=== PATIENT | male | born 1955 | race African-American/Black ===

== ENCOUNTER → 2018-12-04 06:47 | Outpatient (CLI) | payer MEDICARE, MEDICAID, SELFPAY ==
[2018-10-22 13:03] VITALS: BMI 30.2
--- NOTE | 2018-12-04 06:48 | ECHOCS_ITS ---
Reason For Study: CAD/ASHD Procedure This was a 2D Doppler, Color Flow transthoracic echocardiogram. The study was technically difficult. Contrast injection was performed. Exam performed in department. Left Ventricle Normal LV size. Moderate concentric left ventricular hypertrophy. Left ventricular systolic function is normal. The estimated ejection fraction is 60 %. Stage 1 diastolic dysfunction. No regional wall motion abnormalities noted. Right Ventricle Normal RV size. Normal systolic function. Atria Normal left atrium. Normal right atrium. Mitral Valve Normal mitral valve. Tricuspid Valve Normal tricuspid valve. Aortic Valve Normal aortic valve. Trisinus/trileaflet aortic valve. Pulmonic Valve Normal pulmonic valve. Great Vessels Normal aortic root. The pulmonary artery is normal size. Normal inferior vena cava. Pericardium/Pleural No pericardial effusion. Medication 22 gauge I.V. with prn adaptor inserted into right arm. Diluted definity 3ml given slow IV push to enhance endocardial definition. MMode/2D Measurements & Calculations LVIDd: 3.9 cm IVSd: 1.7 cm Ao root diam: 3.5 cm LVIDs: 2.3 cm LVPWd: 1.4 cm LA dimension: 3.6 cm FS: 42.2 % LAV(MOD-sp4): 56.1 ml LA A4 area: 20.5 cm2 Time Measurements MV dec time: 0.38 sec Doppler Measurements & Calculations MV E max dewayne: 50.2 cm/sec Lat Peak E' Dewayne: 6.8 cm/sec Med Peak E' Dewayne: 4.5 cm/sec MV A max dewayne: 95.8 cm/sec E/E' lat: 7.3 E/E' med: 11.3 MV E/A: 0.52 MV V2 max: 99.2 cm/sec MV P1/2t max dewayne: 70.1 cm/sec Ao V2 max: 92.5 cm/sec MV max P.9 mmHg MV P1/2t: 79.3 msec Ao max P.5 mmHg MV V2 mean: 52.3 cm/sec MV dec slope: 259.1 cm/sec2 MV mean P.3 mmHg MV V2 VTI: 23.7 cm MVA(P1/2t): 2.8 cm2 LV V1 max: 84.8 cm/sec PA V2 max: 84.6 cm/sec LV V1 max P.0 mmHg Interpretation Summary Normal LV size. Moderate concentric left ventricular hypertrophy. Left ventricular systolic function is normal. The estimated ejection fraction is 60 %. Stage 1 diastolic dysfunction. Contrast injection was performed. Ordering Physician: Mack Webster Referring Physician: Mack Webster Performed By: Bijan Baer RCS
--- NOTE | 2018-12-04 12:39 | STRESSREP ---
Stress Test Report Pharmacologic myocardial perfusion stress test. 63-year-old man with history of coronary artery disease. Medications insulin, lisinopril, metoprolol, simvastatin, amlodipine. Stress protocol: Resting EKG demonstrates normal sinus rhythm with a rate of [address] changes are noted premature ventricular complexes are present. Resting blood pressure is 154/74 mmHg. 0.4 mg of regadenoson was infused per usual protocol .Intravenous saline flush injection continuous EKG monitoring was performed. The patient maintained sinus rhythm throughout the recording the maximum heart rate was 92 bpm which was 59% of maximum predicted heart rate and maximum workload was 1 metabolic equivalent. At rest downsloping inferolateral ST changes were noted with no meet the criteria for ischemia. At peak infusion the changes did not appear to be any worse. Myocardial perfusion protocol. 11.7 mCi of technetium 99m sestamibi was injected at rest. 0.4 mg of regadenoson was infused per usual protocol peak infusion 33.7 mCi of technetium 99m sestamibi was injected stress images were obtained stress and rest images were reconstructed and compared in the short axis vertical and horizontal long axes. Gated images were also obtained Diffusion SPECT analysis. Review of the stress imaging demonstrates normal uptake of tracer noted in all areas of the myocardium the resting images similarly demonstrate normal uptake of tracer noted in all areas of myocardium. No gated images were obtained. Conclusion: Normal pharmacologic myocardial perfusion stress test.
== END ==
PROVIDERS: Family Provider Family Medicine; PCP Family Medicine; Referring Provider Nurse Practitioner Family; Visit Provider Nurse Practitioner Family
DX: I25.10 Atherosclerotic heart disease of native coronary artery without angina pectoris (principal); E11.65 Type 2 diabetes mellitus with hyperglycemia; I10 Essential (primary) hypertension
CPT/HCPCS: 78452; 93017; 93306; A9500; Q9957; A4216; C8929; J2785

== ENCOUNTER → 2020-01-19 16:42 | Outpatient (CLI) | payer MEDICARE, MEDICAID, SELFPAY ==
[2020-01-19 15:48] VITALS: BMI 26.1
[2020-01-19 17:57] LABS: Anion Gap 6 (5-15); BUN 30 mg/dL (7-18); Calcium,Total 8.8 mg/dL (8.5-10.1); Chloride 110 mmol/L (98-107); Creatinine, Serum 2.31 mg/dL (0.70-1.30); EST Glomerular Filtration Rate 30 mL/min (>60); Est Glom Filt Rate - Afr Amer 37 mL/min (>60); Glucose 172 mg/dL (74-106); Magnesium 2.5 mg/dL (1.6-2.6); Potassium 4.8 mmol/L (3.5-5.1); Sodium Level 138 mmol/L (136-145)
== END ==
PROVIDERS: PCP Family Medicine; Referring Provider Nurse Practitioner Family; Visit Provider Nurse Practitioner Family
DX: I25.10 Atherosclerotic heart disease of native coronary artery without angina pectoris (principal); I10 Essential (primary) hypertension; E78.5 Hyperlipidemia, unspecified; R55 Syncope and collapse
CPT/HCPCS: 36415; 80048; 83735

== ENCOUNTER → 2020-01-21 12:43 | Outpatient (CLI) | payer MEDICARE, MEDICAID, SELFPAY ==
[2020-01-19 15:48] VITALS: BMI 26.1
== END ==
PROVIDERS: PCP Family Medicine; Referring Provider Nurse Practitioner Family; Visit Provider Nurse Practitioner Family
DX: R55 Syncope and collapse (principal)
CPT/HCPCS: 93225; 93226

== ENCOUNTER 2023-02-26 15:06 | Emergency (ER) | payer MEDICARE, MEDICAID, SELFPAY ==
[2023-02-26 15:08] VITALS: BP 132/72; PULSE 80; RESP 18; TEMP 36.8; O2SAT 100; BMI 25.9
--- NOTE | 2023-02-26 16:11 | RAD_ITS ---
STUDY: X-RAY - THORACIC SPINE REASON FOR EXAM: Male, 67 years old. Injury/Pain TECHNIQUE: AP and lateral view(s) of the thoracic spine were obtained. COMPARISON: None. FINDINGS: Normal kyphosis of the thoracic spine. There is no substantial scoliosis. Normal thoracic vertebrae. There are diffuse arthritic changes are noted.. The soft tissue structures are unremarkable. RAD/Thoracic Spine 3 Views IMPRESSION: Diffuse arthritic changes. No acute fracture or other significant bony pathology. Electronically Signed: Delmar Castano MD at 17:06 EDT ,
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
--- NOTE | 2023-02-26 16:11 | RAD_ITS ---
STUDY: X-RAY - LUMBAR SPINE REASON FOR EXAM: Male, 67 years old. Injury/Pain TECHNIQUE: AP and lateral view(s) of the lumbar spine were obtained. COMPARISON: None FINDINGS: Normal lumbar lordosis. There is no substantial scoliosis. There is a normal alignment of the vertebrae. No evidence for acute fracture or subluxation. No lytic or sclerotic bony lesions are observed. . There is narrowing of the L4-5 disc space and multilevel endplate spurring. Vascular calcification is seen without evidence for aortic aneurysm. RAD/Lumbar Spine 2 or 3 Views IMPRESSION: Spondylosis. No acute fracture or other significant bony pathology. Electronically Signed: Delmar Castano MD at 17:05 EDT ,
[2023-02-26] MEDS: morphine 8 MG/ML Syringe 6 MG IV (16:31)
[2023-02-26 17:30] VITALS: O2SAT 99
[2023-02-26] MEDS: oxyCODONE 5 MG Tablet 10 MG PO (17:40)
== END 2023-02-26 17:48 | disposition home or self-care (01) ==
PROVIDERS: Emergency Provider Emergency Medicine; Visit Provider Emergency Medicine
DX: M54.50 Low back pain, unspecified (principal); E11.51 Type 2 diabetes mellitus with diabetic peripheral angiopathy without gangrene; Z79.4 Long term (current) use of insulin; G89.29 Other chronic pain; E78.5 Hyperlipidemia, unspecified; I10 Essential (primary) hypertension; I25.10 Atherosclerotic heart disease of native coronary artery without angina pectoris; F17.210 Nicotine dependence, cigarettes, uncomplicated; Z79.899 Other long term (current) drug therapy; Z79.82 Long term (current) use of aspirin; V89.2XXA Person injured in unspecified motor-vehicle accident, traffic, initial encounter
CPT/HCPCS: 72072; 72100; 96374; 99284

== ENCOUNTER → 2023-06-18 | Outpatient (CLI) | payer MEDICARE, MEDICAID, SELFPAY ==
[2023-06-18 16:09] LABS: AST(SGOT) 26 U/L (15-37); Alanine Aminotransfer ALT/SGPT 22 U/L (16-61); Albumin, Serum 3.4 g/dL (3.2-5.0); Alkaline Phosphatase 87 U/L (45-117); Bilirubin, Direct 0.09 mg/dL (0.00-0.30); Cholesterol 122 mg/dL (200); Globulin 3.7 g/dL (2.2-4.2); High Density Lipoprotein 37 mg/dL; Protein, Total 7.1 g/dL (6.4-8.2); Triglycerides 110 mg/dL; Very Low Density Lipoprotein 22 mg/dL (5-40)
== END | disposition home or self-care (01) ==
PROVIDERS: Referring Provider Nurse Practitioner Family; Visit Provider Nurse Practitioner Family
DX: I25.10 Atherosclerotic heart disease of native coronary artery without angina pectoris (principal); I10 Essential (primary) hypertension; E78.5 Hyperlipidemia, unspecified
CPT/HCPCS: 36415; 80061; 80076